=== PATIENT | female | born 1965 | race Caucasian/White ===

== ENCOUNTER 2016-12-19 12:43 | Emergency (ER) | payer OTHER ==
[~2016-12-19] VITALS: Ht 152.4 cm; Wt 89.8 kg
[2016-12-19] MEDS ORDERED: PROZAC40 M1 PO (12:49)
[2016-12-19] MEDS ORDERED: TRAZODONE50 MG PO (12:49)
[2016-12-19] MEDS ORDERED: CLONAZEPAM1 M1 PO (12:49)
[2016-12-19] MEDS ORDERED: FLONASE ALLERG9.9 ML NAS (12:56)
[2016-12-19] MEDS ORDERED: CLARITIN10 MG PO (12:56)
[2016-12-19] MEDS ORDERED: TOBREX OPHTH S2.5 ML OPH (12:56)
[2016-12-19] MEDS ORDERED: PREDNISONE10 MG PO (12:56)
== END 2016-12-19 14:08 | disposition home or self-care (01) ==
LOC: ED 12:43 → EDBD 12:46 → ED 14:08
DX: H10.9 Unspecified conjunctivitis (principal); R03.0 Elevated blood-pressure reading, without diagnosis of hypertension; Z79.899 Other long term (current) drug therapy